=== PATIENT | female | born 1960 | race African-American/Black ===

== ENCOUNTER 2016-12-15 09:35 | Inpatient (IN) | payer MEDICAID ==
[2016-12-15] MEDS ORDERED: MORPHINE 4 MG/ML INJECTION IV ONE (10:06)
[2016-12-15] MEDS ORDERED: ONDANSETRON HCL 4 MG/2 ML VIAL IV ONE (10:06)
[2016-12-15] MEDS ORDERED: LABETALOL 20 MG/4 ML SYRINGE IV ONE (10:10)
--- NOTE | 2016-12-15 10:12 | EDPRACDOC ---
- General Information Chief Complaint: Wound Stated Complaint: SORE ON RIGHT LEG Time Seen by Provider: 12/15/16 09:57 Information Source: Patient Mode Of Arrival: Car Home Medications: Home Medications Furosemide [Lasix] 40 mg PO TID 07/13/16 Albuterol Sulfate [Proventil Hfa] 1 - 2 puff INH Q4H PRN #1 hfa.aer.ad 07/20/16 Losartan Potassium [Cozaar] 50 mg PO DAILY #30 tablet 07/20/16 Metoprolol Succinate (XL) [Toprol Xl] 100 mg PO BID #60 tablet 07/20/16 Cyanocobalamin (Vitamin B-12) [B-12] 500 mcg PO DAILY 12/15/16 Ferrous Sulfate [Feosol] 325 mg PO DAILY 12/15/16 Hydrochlorothiazide 25 mg PO DAILY 12/15/16 Allergies/Adverse Reactions: Allergies Allergy/AdvReac Type Severity Reaction Status Date / Time Penicillins Allergy Intermediate MOUTH Verified 12/15/16 09:43 SWELLS - History of Present Illness Onset: 1 MONTH HPI: PT REPORTS A WOUND TO HER RLE THAT HAS BEEN GOING ON FOR A MONTH. PT SAID THAT SHE'S BEEN TO HER DR 3 TIMES FOR THIS PROBLEM, BUT NOTHING HAS BEEN DONE. PT SAID THEY TOLD HER THAT SHE'D GET [facility]ERRED TO [facility], BUT SHE SAID THEY HAVE NOT DONE THIS YET. PT SAID THE WOUND IS GETTING MUCH WORSE AND IS MORE PAINFUL. Mechanism: Reports: Unknown Circumstances: Reports: Preceding Wound History of: Reports: None Severity: Reports: Moderate Able to Bear Weight: Limited ED Past Medical History - Patient Medical History Neurological History: Reports: Cerebrovascular Accident. Denies: Seizures, Dementia, Guillian-[place] Syndrome, Parkinson's, Multiple Sclerosis Cardiac History: Reports: Hypertension, Heart Attack (X2), Cardiac Catheterization, Hypercholesterolemia. Denies: Syncope Respiratory History: Reports: Asthma. Denies: Pneumonia, Pulmonary Embolism GI/ History: Denies: Renal Failure, Urinary Tract Infection, Kidney Stones Musculoskeletal History: Reports: Arthritis Psychological History: Denies: Depression, Anxiety, Bipolar Disorder, Substance Use Disorder Systemic History: Reports: Anemia, Diabetes. Denies: Cancer, Hyperthyroidism, Hypothyroidism Additional Past Medical History: 2L HOME O2 Surgical History: Reports: Cardiac Catheterization, Hernia Surgery (X2), Other ( CSXN). Denies: Hysterectomy, Tonsillectomy/Adnoidectomy - Family Medical History Reports: Hypertension (Father, Son), Diabetes (Sister), Cancer (Grandparents), Stroke (Father), Cardiac Disorders (Father) - Social Medical History Smoking Status: Never smoker Social History: Denies: Other Substance Use ETOH: None Substance Abuse: None Lives In: Home EDM Review of Systems - Review of Systems ROS Negative Except as Marked: Yes All systems reviewed and were negative except as marked Respiratory: Shortness of Breath Musculoskeletal: Leg Integumentary: Wound - Physical Exam Constitutional: Alert (Awake), No apparent distress Oriented to: Time, Person, Place Last recorded Vital Signs: Last Vital Signs Temp 98.1 F 12/15/16 09:48 Pulse 102 12/15/16 10:07 Resp 20 12/15/16 10:07 BP 170/62 12/15/16 10:07 Pulse Ox 98 12/15/16 10:07 Oxygen Pulse Oxygen Saturation 98 O2 Device Nasal Cannula Oxygen Flow Rate 2 Fraction of Inspired Oxygen ( 2 FIO2) - HEENT Head: Normal ( normocephalic) Eye Exam: Normal (PERRL, EOMI, Sclera white) Oropharynx: Normal (Pharynx:Moist without exudate,Gums-no swelling) ENT EAC: Normal TMJ: Normal Nose: No Symptoms Reported (septum midline) Neck: Normal (FROM, trachea at midline) - Respiratory/Cardiovascular Respiratory: Normal - CTA (BBS clear to auscultation without adventitious sounds ) Cardiovascular: Tachycardia - GI Auscultation: Normal (NABS) Palpation: Normal (Soft,No rebound or guarding, non distended) Tenderness: Non tender De Los Santos's Sign: Negative - Musculoskeletal Back: Normal Extremities: Pedal Edema - Integumentary Lymphatics: Normal Integumentary Comment: RIGHT LEG WITH SKIN BREAKDOWN AND DRAINAGE AT RIGHT CALF. PT HAS REDNESS AND SWELLING AROUND IT. - Neurologic Memory Impaired: Normal Motor Function: Normal (Normal tone, Pulses 2+ No cyanosis or edema, FROM) Cranial Nerve: Normal (CN II-X11 intact sensation, strength 5/5) Cerebellar: Normal Mood Description: Normal Thought: Coherent Perception: Normal - Results 12/15/16 10:19 12/15/16 10:19 - EKG EKG #1 EKG Time: 10:22 -: Yes EKG interpreted by me Rate: bpm: 101 [place]: Normal Rhythm: ST Block: None Hypertrophy: None ST: Normal Comparison: 07/13/16 - Diagnostic Imaging Leg Image interpreted by: Radiologist 1. No fracture. No bone lesion. No evidence of osteomyelitis. 2. Diffuse soft tissue edema. No soft tissue air. Chest Image interpreted by: Radiologist No acute cardiopulmonary disease. Other Image interpreted by: Radiologist US: 1. No evidence of lower extremity deep vein thrombosis, RIGHT, with limitations as above secondary to body habitus. - Departure Yes I personally saw and evaluated the patient. Disposition: Admit IP To This Hospital Condition: Fair Final Diagnosis: Cellulitis of right lower extremity, Nonhealing ulcer of right lower extremity , Morbid obesity, Lymphedema, Type 2 diabetes mellitus Instructions: Managing Diabetes During Sick Days (ED), Diabetes and Exercise Education/Counseling Given To: Patient Education/Counseling Given Regarding: Diagnosis, Treatment, Follow Up Referrals: Almita Quintero MD [Primary Care Provider] - One Week Prescriptions: No Action Furosemide [Lasix] 40 mg PO TID Losartan Potassium [Cozaar] 50 mg PO DAILY #30 tablet Albuterol Sulfate [Proventil Hfa] 1 - 2 puff INH Q4H PRN #1 hfa.aer.ad PRN Reason: Shortness Of Breath Metoprolol Succinate (XL) [Toprol Xl] 100 mg PO BID #60 tablet Hydrochlorothiazide 25 mg PO DAILY Cyanocobalamin (Vitamin B-12) [B-12] 500 mcg PO DAILY Ferrous Sulfate [Feosol] 325 mg PO DAILY Forms: Patient Discharge Instructions, ED Discharge Instructions Decision to Admit Time: 12:27 Decision to admit date: 12/15/16 Decision to admit: from ED - Physician Consulted Hospitalist Provider Called: Michael Bonilla
[2016-12-15 10:29] LABS: MPV 8.4 fL (7.4-10.4)
[2016-12-15 10:43] LABS: PARTIAL THROMB. TIME 25.6 SEC (22-35)
[2016-12-15 10:50] LABS: SEG NEUTROPHIL 62 % (45-76)
[2016-12-15 10:51] LABS: BLOOD UREA NITROGEN 18 MG/DL (7-17); CALCIUM 9.3 MG/DL (8.4-10.2); CALCULATED OSMOLALITY 281 MOs/Kg (270-290); CHLORIDE 103 mEq/L (98-107); GLUCOSE 106 mg/dL (70-99); SODIUM LEVEL 145 mEq/L (137-146)
--- NOTE | 2016-12-15 11:09 | DIRPT ---
CLINICAL DATA: Short of breath. PT REPORTS A WOUND TO HER RLE, MID CALF, THAT HAS BEEN GOING ON FOR A MONTH. PT SAID THAT SHE'S BEEN TO HER DR 3 TIMES FOR THIS PROBLEM, BUT NOTHING HAS BEEN DONE. PT SAID THEY TOLD HER THAT SHE'D GET REFERRED TO [facility], BUT SHE SAID THEY HAVE NOT DONE THIS YET. PT SAID THE WOUND IS GETTING MUCH WORSE AND IS MORE PAINFUL. EXAM: PORTABLE CHEST 1 VIEW COMPARISON: 07/17/2016 FINDINGS: Study somewhat limited by the portable technique and the patient's body habitus. Moderate enlargement of the cardiopericardial silhouette, stable. No mediastinal or hilar masses. Lungs are clear. No convincing pleural effusion or pneumothorax. IMPRESSION: No acute cardiopulmonary disease. Electronically Signed By: Ken Nava M.D. On: 12/15/2016 11:06
--- NOTE | 2016-12-15 11:11 | DIRPT ---
CLINICAL DATA: PT REPORTS A WOUND TO HER RLE, MID CALF, THAT HAS BEEN GOING ON FOR A MONTH. PT SAID THAT SHE'S BEEN TO HER DR 3 TIMES FOR THIS PROBLEM, BUT NOTHING HAS BEEN DONE. PT SAID THEY TOLD HER THAT SHE'D GET REFERRED TO THE [facility], BUT SHE SAID THEY HAVE NOT DONE THIS YET. PT SAID THE WOUND IS GETTING MUCH WORSE AND IS MORE PAINFUL. EXAM: RIGHT TIBIA AND FIBULA - 2 VIEW COMPARISON: None. FINDINGS: No acute fracture. No bone lesion. No areas of bone resorption are seen to suggest osteomyelitis. There are knee joint degenerative changes with joint space narrowing and marginal spurring. There is diffuse subcutaneous soft tissue edema. No soft tissue air. IMPRESSION: 1. No fracture. No bone lesion. No evidence of osteomyelitis. 2. Diffuse soft tissue edema. No soft tissue air. Electronically Signed By: Ken Nava M.D. On: 12/15/2016 11:08
[2016-12-15 11:20] LABS: LEUKOCYTES/URINE NEG (NEGATIVE); NITRITE/URINE NEG (NEGATIVE); URINE OCCULT BLOOD NEG (NEG/TRACE); WBC/URINE 0-2 (0-5)
--- NOTE | 2016-12-15 12:18 | DIRPT ---
CLINICAL DATA: Pain x2 months, edema ; obesity EXAM: RIGHT LOWER EXTREMITY VENOUS DOPPLER ULTRASOUND TECHNIQUE: Brambila-scale sonography with compression, as well as color and duplex ultrasound, were performed to evaluate the deep venous system from the level of the common femoral vein through the popliteal and proximal calf veins. COMPARISON: 08/14/2008 FINDINGS: Normal compressibility of the common femoral, superficial femoral, and popliteal veins, as well as the proximal calf veins. Nonvisualization of the mid and distal femoral vein secondary to body habitus. Limited but unremarkable assessment of popliteal vein . No filling defects to suggest DVT on grayscale or color Doppler imaging. Doppler waveforms show normal direction of venous flow, normal respiratory phasicity and response to augmentation. Subcutaneous edema in the calf. Survey views of the contralateral common femoral vein are unremarkable. IMPRESSION: 1. No evidence of lower extremity deep vein thrombosis, RIGHT, with limitations as above secondary to body habitus. Electronically Signed By: Isaias Dawn M.D. On: 12/15/2016 12:15
[2016-12-15] MEDS ORDERED: ALBUTEROL 6.7 GM MDI INH PRN (12:44)
[2016-12-15] MEDS ORDERED: ONDANSETRON HCL 4 MG/2 ML VIAL IV PRN (12:51)
[2016-12-15] MEDS ORDERED: SODIUM CHLORIDE 0.9% 3 ML FLUSH FLUSH PRN (12:51)
[2016-12-15] MEDS ORDERED: MAGNESIUM HYDROXIDE 30 ML BOTTLE PO PRN (12:51)
[2016-12-15] MEDS ORDERED: ACETAMINOPHEN 325 MG/TAB TABLET PO PRN (12:51)
[2016-12-15] MEDS ORDERED: IBUPROFEN 400 MG TAB PO PRN (12:51)
[2016-12-15] MEDS ORDERED: Aluminum;Magnesium;Simethicone 30 ML UDC PO PRN (12:51)
--- NOTE | 2016-12-15 13:11 | HISTPHYS ---
- Chief Complaint 56-year-old female presents the emergency department complaining of a leg wound for 2 months. - History of Present Illness PT REPORTS A WOUND TO HER RLE THAT HAS BEEN GOING ON FOR A MONTH. PT SAID THAT SHE'S BEEN TO HER DR 3 TIMES FOR THIS PROBLEM, BUT NOTHING HAS BEEN DONE. PT SAID THEY TOLD HER THAT SHE'D GET REFERRED TO THE [facility], BUT SHE SAID THEY HAVE NOT DONE THIS YET. PT SAID THE WOUND IS GETTING MUCH WORSE AND IS MORE PAINFUL. Mechanism: Reports: Unknown Circumstances: Reports: Preceding Wound History of: Reports: None Severity: Reports: Moderate Able to Bear Weight: Limited She was fully evaluated in the ER and found not to have any deep venous thrombosis x-rays were unremarkable. Given the severity of her leg wound and the problems associated with the pain in her right leg the patient will be admitted to the hospital for IV antibiotics and further evaluation and management. - Medical History Cardiac History: Reports: Hypertension, Heart Attack (X2), Cardiac Catheterization, Hypercholesterolemia. Denies: Syncope Respiratory History: Reports: Asthma. Denies: Pneumonia, Pulmonary Embolism GI/ History: Denies: Renal Failure, Urinary Tract Infection, Kidney Stones Musculoskeletal History: Reports: Arthritis Systemic History: Reports: Anemia, Diabetes. Denies: Cancer, Hyperthyroidism, Hypothyroidism Neurological History: Reports: Cerebrovascular Accident. Denies: Seizures, Dementia, Guillian-[place] Syndrome, Parkinson's, Multiple Sclerosis Psychological History: Denies: Depression, Anxiety, Bipolar Disorder, Substance Use Disorder - Surgical History Reports: Cardiac Catheterization, Hernia Surgery (X2), Other (CSXN). Denies: Hysterectomy, Tonsillectomy/Adnoidectomy - Medictions/Allergies Allergies Penicillins Allergy (Intermediate, Verified 12/15/16 09:43) MOUTH SWELLS Current Medication List: Reviewed Home Medications Furosemide [Lasix] 40 mg PO TID 07/13/16 Albuterol Sulfate [Proventil Hfa] 1 - 2 puff INH Q4H PRN #1 hfa.aer.ad 07/20/16 Losartan Potassium [Cozaar] 50 mg PO DAILY #30 tablet 07/20/16 Metoprolol Succinate (XL) [Toprol Xl] 100 mg PO BID #60 tablet 07/20/16 Cyanocobalamin (Vitamin B-12) [B-12] 500 mcg PO DAILY 12/15/16 Ferrous Sulfate [Feosol] 325 mg PO DAILY 12/15/16 Hydrochlorothiazide 25 mg PO DAILY 12/15/16 - Family History Reports: Hypertension (Father, Son), Diabetes (Sister), Cancer (Grandparents), Stroke (Father), Cardiac Disorders (Father) - Social History Travel Outside of [place] in the Last 3 Months?: No Lives: With Family Smoking Status: Never smoker Social History: Denies: Alcohol Use, Other Substance Use - Review of Systems Constitutional: negative: Chills, Fever, Diaphoresis, Fatigue, Loss of Appetite , Weakness, Weight gain Eyes: No Symptoms Reported (No blurry vision, visual changes, eye pain, or eye redness.) Nose: No Symptoms Reported (No nasal discharge/congestion or bleeding) Mouth: No Symptoms Reported (No oropharyngeal lesions or erythema) Throat/Neck: No Symptoms Reported (No throat pain or swelling.No oropharyngeal lesions or erythema.) Respiratory: No Symptoms Reported (No cough, wheezing, or shortness of breath.) Cardiovascular: No Symptoms Reported (No chest pain or palpitations.) Gastrointestinal: No Symptoms Reported (No abdominal pain, nausea, vomiting, diarrhea, constipation, or bloody stool.) Genitourinary: No Symptoms Reported (No dysuria or hematuria.) Neurological: No Symptoms Reported (No headache, dizziness, seizures, or focal weakness.) Musculoskeletal:: No Symptoms Reported Integumentary: Rash, Wound, Ulcers Allergic/Immunologic: No Symptoms Reported (no rashes or lesions) Hematologic: No Symptoms Reported (No chronic anemia, bleeding, or easy bruising.), Other (Lymphatics- no lymph node swelling or pain.) Endocrine: No Symptoms Reported (No thyroid issues, polyuria, or polydipsia.) Psychiatric: No Symptoms Reported (Fully oriented, with normal and appropriate affect.) - Physical Exam Vital Signs: Initial Vitals Temperature 98.6 F 12/15/16 09:40 Pulse Rate 114 12/15/16 09:40 Respiratory Rate 22 12/15/16 09:40 Blood Pressure 217/106 H 12/15/16 09:40 Pulse Oxygen Saturation 91 12/15/16 09:40 Constitutional: Alert, Well appearing. negative: Distress, Decreased Consciousness, Well nourished Oriented to: Time, Person, Place - HEENT Head: Normal (normocephalic, atraumatic.), Other (No cervical lymphadenopathy. No supraclavicular lymphadenopathy. Neck: No palpable mass, supple , trachea midline.) Eye: Normal (pupils equal, reactive to light, and round; EOMI, Sclera white) Oropharynx: Normal (Pharynx: Moist without exudate,Gums-no swelling, No oropharyngeal lesions or erythema, Mucous membranes are dry.) Nose: No Symptoms Reported (septum midline, Nares patent, without discharge or bleeding.) Respiratory: Normal - CTA (Clear to auscultation bilaterally. No wheezing, rales , rhonchi. Chest wall movements are symmetric. No use of accessory muscles to breathe.) Cardiovascular: Normal (RRR , Normal S1, S2. No murmurs, rubs, or gallops. PMI non-displaced. Carotids: no carotid bruits. No bradycardia or tachycardia. DP pulses 2+ bilaterally.) - GI Auscultation: Normal (normal active sounds) Palpation: Normal (Soft,non distended,nontender. No hepatosplenomegaly.) Tenderness: Non tender (No rebound or guarding) De Los Santos's Sign: Negative - Musculoskeletal Back: Normal (Non-Tender) Extremities: Normal (Normal tone, DP pulses 2+ bilaterally, No cyanosis or edema bilaterally, FROM bilaterally.) - Integumentary Skin: Rash (Darkened area at posterior area of catheterization with associated ulceration measuring about) Lymphatics: Normal (No cervical lymphadenopathy. No supraclavicular lymphadenopathy.) - Neurologic Memory Impaired: Normal Motor Function: Normal (Motor 5/5 throughout.Normal tone, Pulses 2+ No cyanosis or edema, FROM) Cranial Nerve: Normal (CN II-XII intact sensation, strength 5/5) Cerebellar: Normal (Babinski: toes downgoing bilaterally. Intact Finger to nose. Sensory grossly intact to light touch. Intact rapid alternating movements bilaterally. No pronator drift.) Mood Description: Normal (Fully oriented. Normal and appropriate affect.) Perception: Normal (Normal and appropriate affect.) - Focused CV Perfusion Exam Vital Signs: Last Vital Signs Temp 97.9 F 12/15/16 12:31 Pulse 73 12/15/16 12:31 Resp 22 12/15/16 12:31 BP 134/75 12/15/16 12:31 Pulse Ox 100 12/15/16 12:31 - Lab Results Laboratory Results - last 24 hr 12/15/16 12/15/16 12/15/16 10:19 10:19 10:19 WBC 6.9 RBC 4.21 Hgb 9.0 L Hct 29.9 L MCV 71 L MCH 21.3 L MCHC 30.0 L RDW 18.7 H Plt Count 268 MPV 8.4 Neut % (Auto) Cancelled Lymph % (Auto) Cancelled [place] % (Auto) Cancelled Eos % (Auto) Cancelled Baso % (Auto) Cancelled Absolute Neuts (auto) Cancelled Absolute Lymphs (auto) Cancelled Seg Neuts % (Manual) 62 Band Neutrophils % 0 Lymphocytes % (Manual) 27 Monocytes % (Manual) 5 Eosinophils % (Manual) 6 H Absolute Neutrophils 4.28 Absolute Lymphocytes 1.86 Platelet Estimate Norm RBC Morphology 1+ micro PT 10.5 INR 1.0 APTT 25.6 Sodium 145 Potassium 4.0 Chloride 103 Carbon Dioxide 31 Anion Gap 15 BUN 18 H Creatinine 0.70 Estimated GFR (MDRD) > 60 Glucose 106 H Calculated Osmolality 281 Calcium 9.3 Total Bilirubin 0.4 AST 15 ALT 19 Alkaline Phosphatase 92 Troponin I < 0.01 [id number] Pept 135 Total Protein 8.0 Albumin 4.0 Urine Color Urine Clarity Urine pH Ur Specific [place] Urine Protein Urine Glucose (UA) Urine Ketones Urine Occult Blood Urine Nitrite Urine Bilirubin Urine Urobilinogen Ur Leukocyte Esterase Urine RBC Urine WBC Ur Epithelial Cells Urine Bacteria Hyaline Casts Urine Mucus 12/15/16 10:43 WBC RBC Hgb Hct MCV MCH MCHC RDW Plt Count MPV Neut % (Auto) Lymph % (Auto) [place] % (Auto) Eos % (Auto) Baso % (Auto) Absolute Neuts (auto) Absolute Lymphs (auto) Seg Neuts % (Manual) Band Neutrophils % Lymphocytes % (Manual) Monocytes % (Manual) Eosinophils % (Manual) Absolute Neutrophils Absolute Lymphocytes Platelet Estimate RBC Morphology PT INR APTT Sodium Potassium Chloride Carbon Dioxide Anion Gap BUN Creatinine Estimated GFR (MDRD) Glucose Calculated Osmolality Calcium Total Bilirubin AST ALT Alkaline Phosphatase Troponin I [id number] Pept Total Protein Albumin Urine Color Yellow Urine Clarity Clear Urine pH 5.0 Ur Specific [place] 1.025 Urine Protein Neg Urine Glucose (UA) Neg Urine Ketones Neg Urine Occult Blood Neg Urine Nitrite Neg Urine Bilirubin Neg Urine Urobilinogen <2.0 Ur Leukocyte Esterase Neg Urine RBC 5-10 H Urine WBC 0-2 Ur Epithelial Cells 2+ Urine Bacteria Few Hyaline Casts 0-2 Urine Mucus Mod H - Diagnostic Findings RIGHT LOWER EXTREMITY VENOUS DOPPLER ULTRASOUND TECHNIQUE: Brambila-scale sonography with compression, as well as color and duplex ultrasound, were performed to evaluate the deep venous system from the level of the common femoral vein through the popliteal and proximal calf veins. COMPARISON: 08/14/2008 FINDINGS: Normal compressibility of the common femoral, superficial femoral, and popliteal veins, as well as the proximal calf veins. Nonvisualization of the mid and distal femoral vein secondary to body habitus. Limited but unremarkable assessment of popliteal vein . No filling defects to suggest DVT on grayscale or color Doppler imaging. Doppler waveforms show normal direction of venous flow, normal respiratory phasicity and response to augmentation. Subcutaneous edema in the calf. Survey views of the contralateral common femoral vein are unremarkable. IMPRESSION: 1. No evidence of lower extremity deep vein thrombosis, RIGHT, with limitations as above secondary to body habitus. Electronically Signed By: Isaias Dwan M.D. On: 12/15/2016 12:15 Exam(s): [id number] RAD/DG TIBIA/FIBULA 2V-R CLINICAL DATA: PT REPORTS A WOUND TO HER RLE, MID CALF, THAT HAS BEEN GOING ON FOR A MONTH. PT SAID THAT SHE'S BEEN TO HER DR 3 TIMES FOR THIS PROBLEM, BUT NOTHING HAS BEEN DONE. PT SAID THEY TOLD HER THAT SHE'D GET REFERRED TO THE [facility], BUT SHE SAID THEY HAVE NOT DONE THIS YET. PT SAID THE WOUND IS GETTING MUCH WORSE AND IS MORE PAINFUL. EXAM: RIGHT TIBIA AND FIBULA - 2 VIEW COMPARISON: None. FINDINGS: No acute fracture. No bone lesion. No areas of bone resorption are seen to suggest osteomyelitis. There are knee joint degenerative changes with joint space narrowing and marginal spurring. There is diffuse subcutaneous soft tissue edema. No soft tissue air. IMPRESSION: 1. No fracture. No bone lesion. No evidence of osteomyelitis. 2. Diffuse soft tissue edema. No soft tissue air. Electronically Signed By: Ken Nava M.D. On: 12/15/2016 11:08 PT REPORTS A WOUND TO HER RLE, MID CALF, THAT HAS BEEN GOING ON FOR A MONTH. PT SAID THAT SHE'S BEEN TO HER DR 3 TIMES FOR THIS PROBLEM, BUT NOTHING HAS BEEN DONE. PT SAID THEY TOLD HER THAT SHE'D GET REFERRED TO THE [facility], BUT SHE SAID THEY HAVE NOT DONE THIS YET. PT SAID THE WOUND IS GETTING MUCH WORSE AND IS MORE PAINFUL. EXAM: PORTABLE CHEST 1 VIEW COMPARISON: 07/17/2016 FINDINGS: Study somewhat limited by the portable technique and the patient's body habitus. Moderate enlargement of the cardiopericardial silhouette, stable. No mediastinal or hilar masses. Lungs are clear. No convincing pleural effusion or pneumothorax. IMPRESSION: No acute cardiopulmonary disease. Electronically Signed By: Ken Nava M.D. On: 12/15/2016 11:06 - Assessment (1) Cellulitis of right lower extremity L03.115 - CELLULITIS OF RIGHT LOWER LIMB Acute Present on Admission: Yes Will admit patient into the hospital and check an MRSA screen start vancomycin. Consider switching antibiotics if MRSA screen is negative. With regards to ulceration on the back of the leg will have physical therapy see the patient and make recommendations. (2) Lymphedema I89.0 - LYMPHEDEMA, NOT ELSEWHERE CLASSIFIED Acute Present on Admission: Yes Significant amount of lymphedema associated with cellulitis. (3) Morbid obesity E66.01 - MORBID (SEVERE) OBESITY DUE TO EXCESS CALORIES Acute Present on Admission: Yes Qualifiers: Obesity type: due to excess calories Qualified Code(s): E66.01 - Morbid ( severe) obesity due to excess calories Weight loss urged (4) Nonhealing ulcer of right lower extremity L97.919 - NON-PRS CHRONIC ULC UNSP PRT OF R LOW LEG W UNSP SEVERITY Acute Present on Admission: Yes Patient with also the lower extremity for approximately 2 months will ask Physical therapy to evaluate and make recommendations. - Plan Admit IV antibiotics physical therapy evaluation. Case Care Discussed with: Patient, Family, Nursing Staff Total Time: 65 minutes Critical Care: No Couseling Time (>50% in counseling/coordination): No
[2016-12-15] MEDS: NS/KCl 20 mEq 1,000 ML IV SCH (13:54)
[2016-12-15] MEDS ORDERED: Vaccine Screening Complete SCH (16:00)
[2016-12-15] MEDS: FUROSEMIDE 40 MG TAB PO SCH ×2 (16:03→20:09)
[2016-12-15] MEDS: SODIUM CHLORIDE 0.9% 3 ML FLUSH FLUSH SCH (17:20)
[2016-12-15] MEDS: ENOXAPARIN 80 MG/0.8 ML PFS SQ SCH (17:52)
[2016-12-15] MEDS: METOPROLOL (TOPROL-XL) 100 MG TAB PO SCH (20:09)
[2016-12-15] MEDS: ACETAMINOPHEN 325 MG/TAB TABLET PO PRN (22:00)
[2016-12-16] MEDS: SODIUM CHLORIDE 0.9% 3 ML FLUSH FLUSH SCH ×2 (03:44→13:04)
[2016-12-16] MEDS: FUROSEMIDE 40 MG TAB PO SCH ×3 (05:22→19:34)
[2016-12-16 06:42] LABS: BLOOD UREA NITROGEN 19 MG/DL (7-17); CALC CORRECTED 9.8 MG/DL (8.4-10.2); CALCIUM 8.9 MG/DL (8.4-10.2); CALCULATED OSMOLALITY 273 MOs/Kg (270-290); CHLORIDE 100 mEq/L (98-107); GLUCOSE 107 mg/dL (70-99); SODIUM LEVEL 141 mEq/L (137-146); TOTAL PROTEIN 6.6 G/DL (6.3-8.2)
[2016-12-16 06:44] LABS: AUTOMATED BASOPHIL 0.3 % (0-2); AUTOMATED EOSINOPHIL 3.8 % (0-5); AUTOMATED LYMPH 20.3 % (17-44); AUTOMATED MONOCYTE 9.8 % (3-10); AUTOMATED NEUTROPHIL 65.8 % (45-76)
[2016-12-16 06:48] LABS: PARTIAL THROMB. TIME 28.2 SEC (22-35)
[2016-12-16 07:19] LABS: LDL (calc.) 91.6 MG/DL (<100); VLDL (calc.) 12.4 MG/DL (5-40)
[2016-12-16] MEDS: NS/KCl 20 mEq 1,000 ML IV SCH ×2 (08:36→15:57)
[2016-12-16] MEDS ORDERED: Non-Formulary Medication ITEM (Ferrous Sulfate [Feosol] 325 MG) PO SCH (09:00)
[2016-12-16] MEDS: LOSARTAN POTASSIUM 50 MG TAB PO SCH (09:00)
[2016-12-16] MEDS: HYDROCHLOROTHIAZIDE 25 MG TAB PO SCH (09:01)
[2016-12-16] MEDS: METOPROLOL (TOPROL-XL) 100 MG TAB PO SCH ×2 (09:02→19:34)
[2016-12-16] MEDS: CYANOCOBALAMIN (Vitamin B-12) 500 MCG TABLET PO SCH (09:02)
[2016-12-16] MEDS: FERROUS SULFATE 324 MG TAB PO SCH (12:07)
[2016-12-16] MEDS ORDERED: OXYCODONE HCL 5 MG TABLET PO PRN (15:46)
[2016-12-16] MEDS: OXYCODONE HCL 5 MG TABLET PO PRN (15:56)
--- NOTE | 2016-12-16 17:23 | GENMEDPROG ---
Subjective Note: Patient with significant pain in the right lower extremity. Appreciate physical therapy wound care consultation. Notes Reviewed: Yes: Events from last night noted and discussed with Clinical Staff Current Medication List: Reviewed Currently: Denies: Cough, Wheezing, Sputum, Abdominal Pain, Ambulating DVT Prophylaxis: Yes - Physical Examination Vital Signs and I&O: Last Vital Signs Temp 97.8 F 12/16/16 05:53 Pulse 81 12/16/16 13:39 Resp 24 12/16/16 13:39 BP 112/55 L 12/16/16 13:39 Pulse Ox 97 12/16/16 13:39 Oxygen Pulse Oxygen Saturation 97 O2 Device Nasal Cannula Oxygen Flow Rate 2 Fraction of Inspired Oxygen ( FIO2) Intake & Output 12/13/16 12/14/16 12/15/16 12/16/16 23:59 23:59 23:59 23:59 Intake Total 934 1278 Balance 934 1278 Patient's weight 158.077 kg 158.786 kg General: Alert, Oriented x3, No acute distress, Well appearing, Well nourished Lymphatics: Normal (No cervical lymphadenopathy. No supraclavicular lymphadenopathy.) Respiratory: Normal - CTA (Clear to auscultation bilaterally. No wheezing, rales , rhonchi. Chest wall movements are symmetric. No use of accessory muscles to breathe.) Cardiovascular: Regular rate and rhythm (No bradycardia or tachycardia), Normal S1, No Gallops,Rubs/Murmurs, Normal S2, Good Pedal Pulses (DP pulses 2+ bilaterally) GI: Normal bowel sounds (normal active sounds), Soft (non-distended), Non tender , No hepatospenomegaly, No masses Extremities/Musculoskeletal: Edema (Decreased compared with yesterday) Skin: Rash (Decreased compared with yesterday but still with significant pain in area of ulceration on the back of the leg) - Assessment (1) Cellulitis of right lower extremity Acute L03.115 - CELLULITIS OF RIGHT LOWER LIMB Comment/Plan: Continue vancomycin as patient is MRSA positive. Will continue to treat expectantly. (2) Lymphedema Acute I89.0 - LYMPHEDEMA, NOT ELSEWHERE CLASSIFIED Comment/Plan: Lower extremity lymphedema decreasing will continue to monitor (3) Morbid obesity Acute E66.01 - MORBID (SEVERE) OBESITY DUE TO EXCESS CALORIES Qualifiers: Obesity type: due to excess calories Qualified Code(s): E66.01 - Morbid ( severe) obesity due to excess calories Comment/Plan: Weight loss urged (4) Nonhealing ulcer of right lower extremity Acute L97.919 - NON-PRS CHRONIC ULC UNSP PRT OF R LOW LEG W UNSP SEVERITY Comment/Plan: Continue local care per Physical therapy recommendations. - Plan Admit IV antibiotics physical therapy evaluation. Disposition Plan: Hopefully home Case Care Discussed with: Patient, Family, Nursing Staff Education/Counseling Given To: Patient, Family Member Education/Counseling Given Regarding: Diagnosis, Treatment, Prognosis Total Time: 45 minutes Critical Care: No Couseling Time (>50% in counseling/coordination): No
[2016-12-16] MEDS: ENOXAPARIN 80 MG/0.8 ML PFS SQ SCH (18:07)
[2016-12-17] MEDS: SODIUM CHLORIDE 0.9% 3 ML FLUSH FLUSH SCH ×2 (03:37→17:19)
[2016-12-17] MEDS: FUROSEMIDE 40 MG TAB PO SCH ×2 (04:11→13:30)
[2016-12-17 07:05] LABS: MPV 8.8 fL (7.4-10.4)
[2016-12-17 07:14] LABS: BLOOD UREA NITROGEN 18 MG/DL (7-17); CALCIUM 8.8 MG/DL (8.4-10.2); CALCULATED OSMOLALITY 273 MOs/Kg (270-290); CHLORIDE 99 mEq/L (98-107); GLUCOSE 106 mg/dL (70-99); SODIUM LEVEL 141 mEq/L (137-146)
[2016-12-17] MEDS: CYANOCOBALAMIN (Vitamin B-12) 500 MCG TABLET PO SCH (09:05)
[2016-12-17] MEDS: METOPROLOL (TOPROL-XL) 100 MG TAB PO SCH ×2 (09:05→20:49)
[2016-12-17] MEDS: LOSARTAN POTASSIUM 50 MG TAB PO SCH (09:05)
[2016-12-17] MEDS: FERROUS SULFATE 324 MG TAB PO SCH (09:05)
[2016-12-17] MEDS: HYDROCHLOROTHIAZIDE 25 MG TAB PO SCH (09:05)
[2016-12-17] MEDS: OXYCODONE HCL 5 MG TABLET PO PRN (10:05)
[2016-12-17] MEDS ORDERED: Medication Special Instructions SCH (16:00)
--- NOTE | 2016-12-17 16:49 | GENMEDPROG ---
Subjective Note: Patient requesting Fernández catheter because she is having difficulty getting to the bathroom. Nursing reports patient very difficult to get out of bed and that she does not wish to get up and walk when asked to. Cellulitis improving slowly. Notes Reviewed: Yes: Events from last night noted and discussed with Clinical Staff Current Medication List: Reviewed Currently: Denies: Cough, Wheezing, Sputum, Abdominal Pain, Ambulating DVT Prophylaxis: Yes - Physical Examination Vital Signs and I&O: Last Vital Signs Temp 97.0 F L 12/17/16 13:55 Pulse 81 12/17/16 13:55 Resp 20 12/17/16 13:55 BP 127/57 L 12/17/16 13:55 Pulse Ox 96 12/17/16 13:55 Oxygen Pulse Oxygen Saturation 96 O2 Device Nasal Cannula Oxygen Flow Rate 2 Fraction of Inspired Oxygen ( FIO2) Intake & Output 12/14/16 12/15/16 12/16/16 12/17/16 23:59 23:59 23:59 23:59 Intake Total 934 2529 1006 Balance 934 2529 1006 Patient's weight 158.077 kg 158.786 kg General: Alert, Oriented x3, No acute distress, Well appearing, Well nourished HEENT: Normal (Normocephalic, atraumatic;EOMI.Sclera white, Nares patent, without discharge or bleeding. No oropharyngeal lesions or erythema. Mucous membranes are dry.) Lymphatics: Normal (No cervical lymphadenopathy. No supraclavicular lymphadenopathy.) Respiratory: Normal - CTA (Clear to auscultation bilaterally. No wheezing, rales , rhonchi. Chest wall movements are symmetric. No use of accessory muscles to breathe.) Cardiovascular: Regular rate and rhythm (No bradycardia or tachycardia), Normal S1, No Gallops,Rubs/Murmurs, Normal S2, Good Pedal Pulses (DP pulses 2+ bilaterally) GI: Normal bowel sounds (normal active sounds), Soft (non-distended), Non tender , No hepatospenomegaly, No masses Extremities/Musculoskeletal: Edema (Decreased compared with yesterday) Skin: Rash (Decreased compared with yesterday but still with significant pain in area of ulceration on the back of the leg) Neurological: Strength at 5/5 X4 ext (Motor 5/5 throughout.), Normal tone, Cranial nerves 3-12 NL ( 2-12 grossly intact.) Lab/DI/Studies Reviewed: Abnormal Lab Results 12/16/16 12/17/16 12/17/16 19:30 05:50 05:50 RBC 3.86 L Hgb 8.2 L Hct 27.4 L MCV 71 L MCH 21.2 L MCHC 29.8 L RDW 18.6 H Carbon Dioxide 36 H BUN 18 H Glucose 106 H Vancomycin Trough 26.0 H* - Assessment (1) Cellulitis of right lower extremity Acute L03.115 - CELLULITIS OF RIGHT LOWER LIMB Comment/Plan: Continue treatment over the next 24 hours. Probable discharge in a.m. home home health nursing and wound care center evaluation (2) Lymphedema Acute I89.0 - LYMPHEDEMA, NOT ELSEWHERE CLASSIFIED Comment/Plan: Improve with Lasix will continue to monitor. (3) Morbid obesity Acute E66.01 - MORBID (SEVERE) OBESITY DUE TO EXCESS CALORIES Qualifiers: Obesity type: due to excess calories Qualified Code(s): E66.01 - Morbid ( severe) obesity due to excess calories Comment/Plan: Weight loss urged (4) Nonhealing ulcer of right lower extremity Acute L97.919 - NON-PRS CHRONIC ULC UNSP PRT OF R LOW LEG W UNSP SEVERITY Comment/Plan: Continue dry dressing with nonadherent gauze twice daily an as needed. Patient to be referred to wound care center at discharge. - Plan Admit IV antibiotics physical therapy evaluation. Disposition Plan: Hopefully home Case Care Discussed with: Patient, Nursing Staff Education/Counseling Given To: Patient Education/Counseling Given Regarding: Diagnosis, Treatment, Prognosis, Follow Up , Disposition Plan Total Time: 45 minutes Critical Care: No Couseling Time (>50% in counseling/coordination): No
[2016-12-17] MEDS: ENOXAPARIN 80 MG/0.8 ML PFS SQ SCH (17:24)
[2016-12-17] MEDS: ACETAMINOPHEN 325 MG/TAB TABLET PO PRN (17:27)
[2016-12-17] MEDS: FUROSEMIDE 40 MG/4 ML VIAL IV SCH (20:46)
[2016-12-18] MEDS: OXYCODONE HCL 5 MG TABLET PO PRN ×2 (02:07→06:07)
[2016-12-18] MEDS: SODIUM CHLORIDE 0.9% 3 ML FLUSH FLUSH SCH ×2 (03:43→17:17)
[2016-12-18] MEDS: FUROSEMIDE 40 MG/4 ML VIAL IV SCH ×2 (03:43→14:02)
[2016-12-18 05:49] VITALS: TEMP 97
[2016-12-18 06:39] VITALS: BMI 62.0
[2016-12-18 08:42] LABS: MPV 8.9 fL (7.4-10.4)
[2016-12-18 09:01] LABS: BLOOD UREA NITROGEN 17 MG/DL (7-17); CALCIUM 9.2 MG/DL (8.4-10.2); CALCULATED OSMOLALITY 273 MOs/Kg (270-290); CHLORIDE 96 mEq/L (98-107); GLUCOSE 101 mg/dL (70-99); SODIUM LEVEL 141 mEq/L (137-146)
[2016-12-18] MEDS: LOSARTAN POTASSIUM 50 MG TAB PO SCH (09:05)
[2016-12-18] MEDS: METOPROLOL (TOPROL-XL) 100 MG TAB PO SCH (09:06)
[2016-12-18] MEDS: CYANOCOBALAMIN (Vitamin B-12) 500 MCG TABLET PO SCH (09:06)
[2016-12-18] MEDS: HYDROCHLOROTHIAZIDE 25 MG TAB PO SCH (09:06)
--- NOTE | 2016-12-18 10:10 | PCM.DCS92 ---
- Final/Secondary Discharge Diagnosis (1) Cellulitis of right lower extremity Acute L03.115 - CELLULITIS OF RIGHT LOWER LIMB Present on Admission: Yes Comment: Continue treatment over the next 24 hours. Probable discharge in a.m. home home health nursing and wound care center evaluation (2) Lymphedema Acute I89.0 - LYMPHEDEMA, NOT ELSEWHERE CLASSIFIED Present on Admission: Yes Comment: Improve with Lasix will continue to monitor. (3) Morbid obesity Acute E66.01 - MORBID (SEVERE) OBESITY DUE TO EXCESS CALORIES Present on Admission: Yes due to excess calories E66.01 - Morbid (severe) obesity due to excess calories Comment: Weight loss urged (4) Nonhealing ulcer of right lower extremity Acute L97.919 - NON-PRS CHRONIC ULC UNSP PRT OF R LOW LEG W UNSP SEVERITY Present on Admission: Yes Comment: Continue dry dressing with nonadherent gauze twice daily an as needed. Patient to be referred to wound care center at discharge. Discharge Disposition: Discharge w/ Home Health (RN and PT) Discharge Condition: Improved Cognitive Discharge Status: Unimpaired Fuctional Discharge Status: Independent, Ambulatory Dysfunction Forms: Patient Discharge Instructions, ED Discharge Instructions Physician Follow up/Referrals: Almita Quintero MD [Primary Care Provider] - One Week Chemo Steven MD [Staff Physician] - 3-4 Days Home Medications / New Prescriptions: New Losartan Potassium [Cozaar] 50 mg PO DAILY #30 tablet Oxycodone Immediate Release [Oxycodone Immediate Release (OxyIR)] 5 mg PO Q4 PRN #20 tablet PRN Reason: MODERATE PAIN Continue Albuterol Sulfate [Proventil Hfa] 1 - 2 puff INH Q4H PRN #1 hfa.[email or web address] PRN Reason: Shortness Of Breath Metoprolol Succinate (XL) [Toprol Xl] 100 mg PO BID #60 tablet Cyanocobalamin (Vitamin B-12) [B-12] 500 mcg PO DAILY Ferrous Sulfate [Feosol] 325 mg PO DAILY Losartan Potassium 50 mg PO HS Hydrochlorothiazide 25 mg PO DAILY #30 tablet Furosemide [Lasix] 40 mg PO TID #90 tablet Discharge Home Medication List Albuterol Sulfate [Proventil Hfa] 1 - 2 puff INH Q4H PRN #1 hfa.aer.ad 07/20/16 [Rx Confirmed 12/15/16] Metoprolol Succinate (XL) [Toprol Xl] 100 mg PO BID #60 tablet 07/20/16 [Rx Confirmed 12/15/16] Cyanocobalamin (Vitamin B-12) [B-12] 500 mcg PO DAILY 12/15/16 [History Confirmed 12/15/16] Ferrous Sulfate [Feosol] 325 mg PO DAILY 12/15/16 [History Confirmed 12/15/16] Losartan Potassium 50 mg PO HS 12/15/16 [History Confirmed 12/15/16] Doxycycline Monohydrate [Doxycycline] 150 mg PO BID #20 tablet 12/18/16 [Rx] Furosemide [Lasix] 40 mg PO TID #90 tablet 12/18/16 [Rx] Hydrochlorothiazide 25 mg PO DAILY #30 tablet 12/18/16 [Rx] Losartan Potassium [Cozaar] 50 mg PO DAILY #30 tablet 12/18/16 [Rx] Oxycodone Immediate Release [Oxycodone Immediate Release (OxyIR)] 5 mg PO Q4 PRN #20 tablet 12/18/16 [Rx] New Discharge Medications (Rx) Doxycycline Monohydrate [Doxycycline] 150 mg PO BID #20 tablet 12/18/16 [Rx] Furosemide [Lasix] 40 mg PO TID #90 tablet 12/18/16 [Rx] Hydrochlorothiazide 25 mg PO DAILY #30 tablet 12/18/16 [Rx] Losartan Potassium [Cozaar] 50 mg PO DAILY #30 tablet 12/18/16 [Rx] Oxycodone Immediate Release [Oxycodone Immediate Release (OxyIR)] 5 mg PO Q4 PRN #20 tablet 12/18/16 [Rx] O2 Device: Room Air Diet at Discharge: Low Salt, Low Fat Activity: No Restrictions Call Office For: Worsening Symptoms, Fever over 100.5, Pain Uncontrolled By Meds - DC Summary Notes Hospital Course Note:: Discharge summary on patient named TIMOTHY DAMON admitted to [facility] on 12/15/16 by Janette Pabon MD. Date of discharge is []. 56-year-old female who presented to the emergency department with complains of a sore on her right leg. She was found to have a right lower extremity cellulitis. Patient is super morbidly obese and does not ambulate much. She had some resistance to ambulating well in the hospital was encouraged to increase her degree of activity. She was seen in consultation by physical therapy who recommended that her wound be treated with dressing changes and be followed up at the wound care center. Patient received IV vancomycin is being converted over to oral doxycycline at discharge at this point she has reached maximal benefit of hospitalization. She is stable for discharge home with home health nursing and follow up with Dr. Steven at the wound care center. Total Time: 45 min Code: 65395 (>30min.) - Physical Exam Vital Signs: Last Vital Signs Temp 97.0 F L 12/18/16 05:48 Pulse 68 12/18/16 09:04 Resp 20 12/18/16 09:04 BP 132/52 L 12/18/16 09:04 Pulse Ox 100 12/18/16 09:43 Oxygen Pulse Oxygen Saturation 100 O2 Device Nasal Cannula Oxygen Flow Rate 2 Fraction of Inspired Oxygen ( FIO2) Constitutional: Alert, Well appearing. negative: Distress, Decreased Consciousness, Well nourished Oriented to: Time, Person, Place - HEENT Head: Normal (normocephalic, atraumatic.), Other (No cervical lymphadenopathy. No supraclavicular lymphadenopathy. Neck: No palpable mass, supple , trachea midline.) Eye: Normal (pupils equal, reactive to light, and round; EOMI, Sclera white) Oropharynx: Normal (Pharynx: Moist without exudate,Gums-no swelling, No oropharyngeal lesions or erythema, Mucous membranes are dry.) Nose: No Symptoms Reported (septum midline, Nares patent, without discharge or bleeding.) - Respiratory/Cardiovascular Respiratory: Normal - CTA (Clear to auscultation bilaterally. No wheezing, rales , rhonchi. Chest wall movements are symmetric. No use of accessory muscles to breathe.) Cardiovascular: Normal (RRR , Normal S1, S2. No murmurs, rubs, or gallops. PMI non-displaced. Carotids: no carotid bruits. No bradycardia or tachycardia. DP pulses 2+ bilaterally.) - GI Auscultation: Normal (normal active sounds) Palpation: Normal (Soft,non distended,nontender. No hepatosplenomegaly.) Tenderness: Non tender (No rebound or guarding) De Los Santos's Sign: Negative - Musculoskeletal Back: Normal (Non-Tender) Extremities: Normal (Normal tone, DP pulses 2+ bilaterally, No cyanosis or edema bilaterally, FROM bilaterally.) - Integumentary Skin: Rash (Cellulitis overall improving edema has decreased.) Lymphatics: Normal (No cervical lymphadenopathy. No supraclavicular lymphadenopathy.) - Neurologic Memory Impaired: Normal Motor Function: Unable to Test Cranial Nerve: Unable to Test Cerebellar: Normal (Babinski: toes downgoing bilaterally. Intact Finger to nose. Sensory grossly intact to light touch. Intact rapid alternating movements bilaterally. No pronator drift.) Mood Description: Normal (Fully oriented. Normal and appropriate affect.) Perception: Normal (Normal and appropriate affect.) - Other Exam Other Exam Findings: Laboratory Results - last 24 hr 12/18/16 12/18/16 08:00 08:00 WBC 6.5 RBC 4.05 L Hgb 8.6 L Hct 28.8 L MCV 71 L MCH 21.2 L MCHC 29.7 L RDW 18.6 H Plt Count 220 MPV 8.9 Sodium 141 Potassium 4.3 Chloride 96 L Carbon Dioxide 39 H Anion Gap 10 BUN 17 Creatinine 0.80 Estimated GFR (MDRD) > 60 Glucose 101 H Calculated Osmolality 273 Calcium 9.2 Magnesium 1.60
[2016-12-18] MEDS: FERROUS SULFATE 324 MG TAB PO SCH (12:14)
[2016-12-18 16:40] VITALS: BP 159/73; PULSE 74
[2016-12-18] MEDS: ENOXAPARIN 80 MG/0.8 ML PFS SQ SCH (17:17)
== END 2016-12-18 19:15 | disposition home or self-care (01) | DRG 603 ==
LOC: ED 09:35 → MPS3 12:45
PROVIDERS: ADMIT Hospitalist; ATTEND Hospitalist
DX: L03.115 Cellulitis of right lower limb (principal); L97.919 Non-pressure chronic ulcer of unspecified part of right lower leg with unspecified severity; I10 Essential (primary) hypertension; Z68.43 Body mass index [BMI] 50.0-59.9, adult; I89.0 Lymphedema, not elsewhere classified; E66.01 Morbid (severe) obesity due to excess calories; I25.2 Old myocardial infarction; E78.00 Pure hypercholesterolemia, unspecified; J45.909 Unspecified asthma, uncomplicated; M19.90 Unspecified osteoarthritis, unspecified site; E11.9 Type 2 diabetes mellitus without complications; Z86.73 Personal history of transient ischemic attack (TIA), and cerebral infarction without residual deficits; Z88.0 Allergy status to penicillin; Z79.899 Other long term (current) drug therapy
CPT/HCPCS: 36415; 71010; 80048; 80053; 80061; 80202; 81001; 83735; 83880; 84443; 84484; 85007; 85025; 85027; 85610; 85730; 87040; 87086; 87641; 93005; 96365; 96366; 96372; 96375; 97162; 99284; G0237; J1650; J1940; J2270; J2405; J3370; J3490; J7040; J7060